=== PATIENT | male | born 1980 | race Caucasian/White ===

== ENCOUNTER 2020-09-09 09:35 | Emergency (ER) | payer BC ==
[2020-09-09 09:57] VITALS: BP 124/84; PULSE 76
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
--- NOTE | 2020-09-09 11:05 | CR ---
[id number] RAD/RAD Knee Left 3V; [id number] RAD/RAD Knee Bilateral Standing 1V Exam: RAD Knee Bilateral Standing 1V, RAD Knee Left 3V Indication:PAIN. Comparison: No prior imaging for comparison. Discussion/Impression: Lateral view demonstrates joint effusion with fluid fluid level. Appearance suggests lipohemarthrosis in the setting of fracture. However no radiographically evident fracture identified on this examination. Bones remain in normal alignment. MRI examination of the knee without contrast is recommended to evaluate for internal knee derangement and radiographically occult subchondral fracture. Edinson Benoit MD 09/09/20 [id number] Thank you for allowing us to participate in the care of your patient.
== END 2020-09-09 11:10 | disposition home or self-care (01) ==
LOC: KA.ED 09:35
DX: S83.412A Sprain of medial collateral ligament of left knee, initial encounter (principal); M23.92 Unspecified internal derangement of left knee; M25.462 Effusion, left knee; X50.1XXA Overexertion from prolonged static or awkward postures, initial encounter
CPT/HCPCS: 73560-RT; 73562-LT; 73564-LT; 73565; 99283; 99284-25